=== PATIENT | female | born 1950 | race Hispanic/Latino ===

== ENCOUNTER 2025-07-23 01:05 | Emergency (ER) | payer MEDICARE ==
[~2025-07-23] VITALS: Ht 149.9 cm; Wt 127.0 kg
--- NOTE | 2025-07-23 01:21 | ERN ---
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 As per EMS patient has been having cough and fever symptoms for the past 36 hours. She was not feeling well today thus she decided to come to the emergency room for evaluation. No vomiting or diarrhea. Denies any hematuria or dysuria. Denies abdominal pain. Allergies: Coded Allergies: Sulfa (Sulfonamide Antibiotics) (Unverified Allergy, Unknown, 07/23/25) Constitutional: (+) fever, (+) malaise, (+) weakness Review of Systems: was completed, & the rest were negative. Physical Exam Physical Exam Dictation GENERAL APPEARANCE NAD, activity normal for age, well developed/ well nourished, no cyanosis, pallor, or diaphoresis. Obese EYES lids/conjunctiva normal. EARS/NOSE/THROAT Mucous membranes moist, nares normal, lips/teeth normal uvula midline without oral pharyngeal erythema, exudate or swelling TMs normal bilaterally. No lymphangitis/lymphedema. HEAD/NECK normocephalic atraumatic, no facial trauma, neck is supple. RESPIRATORY respiratory effort normal, speaks in full sentences, no tripod position, no accessory muscle use. Lungs clear to auscultation without rhonchi, wheezes, rales CARDIAC Regular rate and rhythm, no edema. ABDOMINAL Soft, ND/NT. No evidence of fluid wave. No pulsatile masses on exam, rebound tenderness, Espino sign or pain over Mcburney's point. MUSCLES/EXTREMITIES left lower extremity amputation. No abnormal range of motion, no swelling. SKIN Warm, pink and dry. No rashes, dermatoses, petechiae or lesions. NEUROLOGICAL Speech is clear and appropriate. Normal level of consciousness. Gait and coordination are normal. 5/5 strength in all extremities. PSYCH Normal mood and affect. Judgement/competence is appropriate Results Laboratory and Microbiology Lab and Micro Result Laboratory Tests Test 07/23/25 01:19 07/23/25 01:20 07/23/25 04:31 White Blood Count 10.4 K/uL (4.8-10.8) Red Blood Count 4.21 MIL/uL (4.00-5.50) Hemoglobin 11.9 g/dL (12.0-16.0) L Hematocrit 36.7 % (36-48) Mean Corpuscular Volume 87.2 fL (79-99) Mean Corpuscular Hemoglobin 28.3 pg (27.0-33.0) Mean Corpuscular Hemoglobin Concent 32.4 g/dL (32.0-36.0) Red Cell Distribution Width 16.4 % (11.0-15.5) H Platelet Count 216 K/uL (130-400) Mean Platelet Volume 9.4 fL (7.5-10.5) Immature Granulocyte % (Auto) 0.2 % (0-1) Neutrophils (%) (Auto) 79.1 % (40.0-77.0) H Lymphocytes (%) (Auto) 10.5 % (21.0-51.0) L Monocytes (%) (Auto) 9.0 % (3.0-13.0) Eosinophils (%) (Auto) 1.1 % (0.0-8.0) Basophils (%) (Auto) 0.1 % (0.0-5.0) Neutrophils # (Auto) 8.2 K/uL (1.8-7.7) H Lymphocytes # (Auto) 1.1 K/uL (1.0-4.8) Monocytes # (Auto) 0.9 K/uL (0.1-1.0) Eosinophils # (Auto) 0.11 K/uL (0.00-0.70) Basophils # (Auto) 0.01 K/uL (0.00-0.20) Absolute Immature Granulocyte (auto 0.02 K/uL (0-1) Nucleated Red Blood Cells 0.0 % (0.0-0.19) Sodium Level 138 mmol/L (136-145) Potassium Level 3.9 mmol/L (3.5-5.1) Chloride Level 102 mmol/L (101-111) Carbon Dioxide Level 30 mmol/L (21-32) Blood Urea Nitrogen 17 mg/dL (7-18) Creatinine 0.9 mg/dL (0.5-1.0) Glomerular Filtration Rate Calc 67 mL/min (>90) Random Glucose 112 mg/dL (70-105) H Total Calcium 7.9 mg/dL (8.5-10.1) L Influenza Type A Antigen Negative For Type A Influenza Type B Antigen Negative For Type B SARS-CoV-2 Antigen (Rapid) PRESUMPTIVE NEGATIVE Group A Streptococcus Rapid negative (NEGATIVE) Urine Color LIGHT-YELLOW (YELLOW) Urine Appearance CLEAR (CLEAR) Urine pH 6.5 (5.0-8.0) Urine Specific Molt 1.015 (1.001-1.031) Urine Protein NEGATIVE mg/dL (NEGATIVE) Urine Glucose (UA) NEGATIVE mg/dL (NEGATIVE) Urine Ketones NEGATIVE mg/dL (NEGATIVE) Urine Occult Blood NEGATIVE (NEGATIVE) Urine Nitrate 2+ (NEGATIVE) H Urine Bilirubin NEGATIVE mg/dL (NEGATIVE) Urine Urobilinogen 0.2 mg/dL (0.2-1.0) Urine Leukocyte Esterase 75 Dorys/uL (NEGATIVE) H MDM 74-year-old female here for evaluation of generalized malaise and fever. We will get swabs, imaging, blood work and reassess. Likely discharge home. 5:00 a.m.: Patient re-evaluated. Urine delayed by patient not wanting to urinate. Significant for UTI. We will give her 2 g of ceftriaxone due to her weight and discharge her home on Keflex. Discharge MDM Patient's prior external medical records from other ER visits were reviewed by me as indicated. Prior testing and results from previous visits were reviewed. Prior tests were taken into account with medical decision making and resource utilization, independent historian/historians were used to obtain complete medical history. I independently interpreted the test that were performed, results were reviewed by me and considered findings on radiology if ordered. Medical management and examination interpretation discussions were had by me with other qualified healthcare professionals as indicated for the patient's care. Labs and imaging reviewed with patient. All questions answered at this time. Patient advised to follow up with primary care physician in the next few days. Patient well-appearing, no acute distress. Vital signs stable. Will discharge at this time. ED Course Orders Procedure Category Date Status Time Rapid (Group A Strep) LAB 07/23/25 Complete 01:07 Covid19 (Sars Antigen LAB 07/23/25 Complete Rapid) 01:07 Influenza Type A & B, LAB 07/23/25 Complete Rapid 01:08 Cbc With Differential LAB 07/23/25 Complete 01:14 Basic Metabolic Panel LAB 07/23/25 Complete 01:14 Urinalysis Profile LAB 07/23/25 In Process 01:14 Chest 1vw RAD 07/23/25 Resulted 01:14 Acetaminophen 500mg PHA 07/23/25 Complete Tab (Tylenol 500mg T 02:00 Culture Urine DARRON 07/23/25 In Process 04:58 Ceftriaxone 2gm Vial PHA 07/23/25 Verified (Rocephin 2gm Inj) 05:30 Current Medications Medications (Trade) Dose Ordered Sig/Ruben Route PRN Reason Start Time Stop Time Status Last Admin Dose Admin Acetaminophen (TYLenol 500MG TAB) 1,000 mg ONCE ONCE PO 07/23/25 02:00 07/23/25 02:01 DC 07/23/25 01:43 Vital Signs Date Time Temp Pulse Resp B/P (MAP) Pulse Ox O2 Delivery O2 Flow Rate FiO2 07/23/25 01:43 101.1 07/23/25 01:23 101.1 76 14 127/46 94 Room Air* 0 21 07/23/25 01:06 100.2 89 16 122/63 93 0 DX & DISP Disposition: Discharge Departure Impression: Primary Impression: UTI (urinary tract infection) Condition: Stable Scripts Cephalexin (Cephalexin) 500 Mg Tablet 1 TAB PO BID for 7 Days, #14 TAB 0 Refills Prov: MAULIK CASON MD 07/23/25 Referrals: NONE (PCP) MAULIK CASON MD Jul 23, 2025 01:21
[2025-07-23 01:29] LABS: IMMATURE GRANULOCYTE ABSOLUTE 0.02 K/uL (0-1); NUCLEATED RED BLOOD CELLS 0.0 % (0.0-0.19); PLATELET COUNT (AUTO) 216 K/uL (130-400); RED BLOOD CELL COUNT(AUTO) 4.21 MIL/uL (4.00-5.50); RED CELL DISTRIBUTION WIDTH 16.4 % (11.0-15.5); WHITE BLOOD COUNT (AUTO) 10.4 K/uL (4.8-10.8)
[2025-07-23 02:08] LABS: CREATININE 0.9 mg/dL (0.5-1.0); GLOMERULAR FILTR. RATE CALC 67.0 mL/min (>90); GLUCOSE,RANDOM 112.0 mg/dL (70-105); SODIUM SERUM 138.0 mmol/L (136-145); UREA NITROGEN, BLOOD 17.0 mg/dL (7-18)
--- NOTE | 2025-07-23 02:08 | HMCIMG ---
EXAM: CR Chest, 1 View. CLINICAL HISTORY: sob, cough COMPARISON: None provided. FINDINGS: LUNGS: There is no mass, infiltrate, or acute pulmonary abnormality. Prominent bronchovascular markings in the bilateral lungs suggest vascular congestion. PLEURAL SPACES: The costophrenic angles are not adequately included. No evidence of large pleural effusion or pneumothorax. MEDIASTINUM: Cardiomegaly with splaying of the keeley and outward cardiac apex suggests possible underlying left atrial and ventricular chamber enlargement. Calcific atherosclerotic changes in the aortic knuckle. BONES: No acute osseous abnormality. IMPRESSION: No acute cardiopulmonary pathology is evident. Cardiomegaly with suggestion of left atrial and ventricular chamber enlargement with bilateral perihilar vascular congestion. Echocardiographic correlation is advised. /Somis
[2025-07-23 02:09] LABS: RAPID GROUP A STREP negative (NEGATIVE)
[2025-07-23 02:20] LABS: COVID19 (SARS ANTIGEN RAPID) PRESUMPTIVE NEGATIVE (NEGATIVE)
[2025-07-23 02:26] LABS: INFLUENZA TYPE A Negative For Type A (NEGATIVE); INFLUENZA TYPE B Negative For Type B (NEGATIVE)
[2025-07-23 04:56] LABS: APPEARANCE,URINE CLEAR (CLEAR); GLUCOSE, URINE (UA) NEGATIVE (NEGATIVE); LEUKOCYTE ESTERASE ,URINE 75 Leu/uL (NEGATIVE); NITRATE,URINE 2+ (NEGATIVE); OCCULT BLOOD,URINE NEGATIVE (NEGATIVE)
[2025-07-23 04:58] LABS: ADD UA MICROSCOPIC YES
[2025-07-23 05:04] LABS: SQUAMOUS EPITHELIAL CELL,UR RARE /HPF (0-2)
--- NOTE | 2025-07-23 05:51 | NUR ---
[facility] CONTACTED FOR TRANSFER BACK TO [facility]
[2025-07-23 06:10] VITALS: TEMP 98.9
--- NOTE | 2025-07-23 06:16 | NUR ---
report given to ana grubbs from [facility]
[2025-07-23 07:33] VITALS: BP 114/63; PULSE 68; RESP 15; TEMP 98.9; O2SAT 96
== END 2025-07-23 08:05 | disposition home or self-care (01) ==
LOC: EDH 01:05
DX: N39.0 Urinary tract infection, site not specified (principal); G89.29 Other chronic pain; M54.50 Low back pain, unspecified; I10 Essential (primary) hypertension; Z20.822 Contact with and (suspected) exposure to COVID-19; Z88.2 Allergy status to sulfonamides
CPT/HCPCS: 99285; 96374; 71045; 87426; 80048; 85025; 87086 ×2; 87186; 87880; 87804 ×2; 81001; 36415; J0696